=== PATIENT | male | born 1950 | race Caucasian/White ===

== ENCOUNTER 2017-06-07 12:05 | Emergency (ER) | payer MEDICARE, OTHER ==
--- NOTE | 2017-06-07 13:11 | ED Physician Documentation ---
General Adult - HISTORIAN Historian: patient, spouse - HPI Stated Complaint: Left Thumb Injury Chief Complaint: Laceration/Recheck/Suture Additional Information: table saw laceration lt thumb-more macerated-xray rev no apparent osseous injury Onset: hours (2) Timing: still present Severity: mild, moderate Further Comments: yes (pt prefern no sutures-probably not help much anyway) - ROS CONST: no problems EYES/ENT: none CVS/RESP: none GI/: none MS/SKIN/LYMPH: none NEURO/PSYCH: denies: headache, fainting, dizziness - PAST HX Past History: other (ihd) Surgeries/Procedures: other (3 stents) Immunizations: tetanus, UTD Allergies/Adverse Reactions: Allergies Allergy/AdvReac Type Severity Reaction Status Date / Time No Known Allergies Allergy Unverified 06/07/17 13:09 Home Medications: Ambulatory Orders Medication Instructions Recorded NK [NK] 06/07/17 - SOCIAL HX Smoking History: non-smoker Alcohol Use: none Drug Use: none - FAMILY HX Family History: No - VITAL SIGNS Vital Signs: Vital Signs Temp Pulse Resp BP Pulse Ox 68 20 164/76 98 06/07/17 12:05 06/07/17 12:05 06/07/17 12:05 06/07/17 12:05 - REVIEWED ASSESSMENTS Nursing Assessment Reviewed: Yes Vitals Reviewed: Yes Procedures Wound Location: upper extremity Wound's Depth, Shape: superficial, irregular (macerated) Wound Explored: no foreign body removed Wound Repaired With: Dermabond (pt prefers no sutures) Sterile Dressing Applied?: Yes ED Results Lab/Radiology - Orders Orders: ED Orders Category Date Time Status XRAY THUMB [FINGER 2 VIEWS OR MORE] [RAD] Stat Exams 06/07/17 Ordered General Adult Physical Exam - PHYSICAL EXAM GENERAL APPEARANCE: mild distress EENT: eye inspection normal NECK: normal inspection RESPIRATORY: no resp distress, chest non-tender, breath sounds normal CVS: reg rate & rhythm, heart sounds normal ABDOMEN: soft, non-tender SKIN: warm/dry, normal color. No: cyanosis, diaphoresis, jaundice EXTREMITIES: other (macerated ) NEURO: oriented X3, motor nml, sensation nml, mood/affect nml, cognition normal Discharge Clincal Impression: laceration lt lthumb-table saw Referrals: Joselito Pat MD [Primary Care Provider] - 2 Days Comments: keep clean get betadine ointment-cleanse w/liquid-keflex po-obs for red streaks pus Condition: Good Disposition: 01 HOME, SELF-CARE Decision to Admit: NO Decision Time: 13:19
--- NOTE | 2017-06-07 13:24 | Diagnostic Imaging Report ---
[facility] [address] [facility].[address] [address] Report Submission Date: Jun 07, 2017 12:51:58 PM PATIENT CONSUMER MARKETER Patient Study Name: EDDIE BALL Date: Jun 07, 2017 12:18:46 PM PATIENT CONSUMER MARKETER Modality Type: CR Gender: M Description: UPPER EXTREMITY : 48 Institution: [facility] Physician: ZOE HEREDIA Examination: Plain film extremity History: Injury Comparison exams: None available Findings: 3 views the 1st digit demonstrates articular degenerative changes. No fracture. No dislocation. No soft tissue abnormality. No radiopaque foreign body. Impression: No acute soft tissue or osseous abnormality. Electronically signed on Jun 07, 2017 12:51:58 PM PATIENT CONSUMER MARKETER by: Juan ROCK
[2017-06-07 13:33] VITALS: BP 160/85
== END 2017-06-07 13:30 | disposition home or self-care (01) ==
LOC: ED 12:05
DX: S61.012A Laceration without foreign body of left thumb without damage to nail, initial encounter (principal); W29.8XXA Contact with other powered hand tools and household machinery, initial encounter; Y93.9 Activity, unspecified; Y92.9 Unspecified place or not applicable
CPT/HCPCS: 12001; 73140; 99283